=== PATIENT | male | born 1990 | race Caucasian/White ===

== ENCOUNTER 2021-11-19 03:23 | Emergency (ER) | payer OTHER ==
[~2021-11-19] VITALS: Ht 180.3 cm; Wt 98.9 kg
--- NOTE | 2021-11-19 03:45 | NUR ---
BS 102; DR CHRIS LOWRY AWARE
[2021-11-19 05:35] VITALS: BP 138/70
--- NOTE | 2021-11-19 05:35 | NUR ---
Patient discharged to home in stable condition. Written and verbal after care instructions given. Patient verbalizes understanding of instruction.
== END 2021-11-19 05:35 | disposition home or self-care (01) ==
LOC: ER 03:34
DX: F10.129 Alcohol abuse with intoxication, unspecified (principal); Y90.9 Presence of alcohol in blood, level not specified
CPT/HCPCS: 82962-TC